=== PATIENT | female | born 1930 | race African-American/Black ===

== ENCOUNTER 2017-04-26 14:05 | Emergency (ER) | payer MEDICARE, MEDICAID ==
[~2017-04-26] VITALS: Ht 160 cm; Wt 57.2 kg
[2017-04-26] MEDS ORDERED: hydroCHLOROthiazide 25 MG TAB PO ONE (14:45)
[2017-04-26 15:42] LABS: CALCIUM LEVEL 9.2 MG/DL (8.8-10.2); CREATININE FOR GFR 1.19 MG/DL (0.55-1.02); GLOMERULAR FILTRATION RATE 55.2 (>32); POTASSIUM SERUM 3.5 MEQ/L (3.5-5.1)
[2017-04-26 15:52] LABS: BASO % 0.5 % (0.0-1.0); EOS # 0.1 K/mm3 (0.0-0.50); EOS % 1.9 % (0.0-3.0); LARGE UNSTAINED CELL # 0.1 K/mm3 (0.0-0.4); LARGE UNSTAINED CELL % 2.3 % (0.0-4.0); LYMPH # 1.5 K/mm3 (1.5-4.5); MEAN CORPUSCULAR HEMOGLOBIN 31.5 pg (27.0-33.0); MEAN CORPUSCULAR HGB CONC 32.9 g/dl (32.0-36.5); MEAN CORPUSCULAR VOLUME 95.7 fl (80.0-96.0); MONO # 0.3 K/mm3 (0.0-0.8); MONO % 7.8 % (0.0-5.0); NEUTROPHILS # 1.6 K/mm3 (1.8-7.7); NEUTROPHILS % 46.5 % (36.0-66.0); PLATELET COUNT, AUTOMATED 123 k/mm3 (150-450); RED CELL DISTRIBUTION WIDTH 13.5 % (11.5-14.5); WHITE BLOOD COUNT 3.3 K/mm3 (4.0-10.0)
--- NOTE | 2017-04-26 16:33 | REP ---
Chest two views HISTORY: Hypertension Comparison: 04/27/2011 The lungs are hyperinflated. The lungs are clear. The cardiac silhouette is enlarged. The pulmonary vasculature is normal in appearance. Degenerative change is present in the thoracic spine. IMPRESSION: Cardiomegaly. Signed by Xavier Jo MD 04/26/2017 04:26 P
[2017-04-26 17:13] VITALS: BP 160/70
--- NOTE | 2017-04-26 19:06 | ECGEPIP ---
Stationary ECG Study [facility] - ED Test Date: 2017-04-26 Pat Name: MARIBETH MCKEON Department: Room: - Gender: F Manager Strategy: davi : [id number] Requested By: MARCELLO GUTIERREZ Order Number: [id number] Reading MD: Joanne Becker Measurements Intervals [place] Rate: 83 P: 80 AL: 157 QRS: -25 QRSD: 137 T: 43 QT: 417 QTc: 491 Interpretive Statements SINUS RHYTHM WITH OCCASIONAL SUPRAVENTRICULAR PREMATURE COMPLEXES BORDERLINE LEFT AXIS DEVIATION RIGHT BUNDLE BRANCH BLOCK NO OLD ECG FOR COMPARISON Electronically Signed On 04-26-2017 19:05:37 EDT by Joanne Becker
== END 2017-04-26 17:14 | disposition home or self-care (01) ==
LOC: M ED 14:05
DX: L84 Corns and callosities (principal); I10 Essential (primary) hypertension; R60.0 Localized edema; E11.9 Type 2 diabetes mellitus without complications; K21.9 Gastro-esophageal reflux disease without esophagitis; D64.9 Anemia, unspecified; I51.7 Cardiomegaly; Z88.0 Allergy status to penicillin

== ENCOUNTER 2018-03-21 14:10 | Emergency (ER) | payer MEDICARE, MEDICAID ==
[2018-03-21] MEDS: ACETAMINOPHEN TAB 650MG DOSE (2X325MG) PO (14:52)
== END 2018-03-21 16:30 | disposition home or self-care (01) ==
LOC: M ED 14:10
DX: S40.012A Contusion of left shoulder, initial encounter (principal); S70.02XA Contusion of left hip, initial encounter; W01.0XXA Fall on same level from slipping, tripping and stumbling without subsequent striking against object, initial encounter; Y92.098 Other place in other non-institutional residence as the place of occurrence of the external cause; I10 Essential (primary) hypertension; Z88.0 Allergy status to penicillin
CPT/HCPCS: 73030

== ENCOUNTER 2018-04-19 13:27 | Emergency (ER) | payer MEDICARE, MEDICAID ==
[2018-04-19 14:24] LABS: BASO % 0.7 % (0.0-1.0); EOS # 0.1 10^3/uL (0.0-0.50); HEMATOCRIT 33.1 % (36.0-47.0); HEMOGLOBIN 10.8 g/dl (12.0-15.5); LYMPH # 1.9 10^3/uL (1.5-4.5); LYMPH % 43.6 % (24.0-44.0); MEAN CORPUSCULAR HEMOGLOBIN 31.4 pg (27.0-33.0); MEAN CORPUSCULAR HGB CONC 32.6 g/dl (32.0-36.5); MEAN CORPUSCULAR VOLUME 96.2 fl (80.0-96.0); MONO # 0.4 10^3/uL (0.0-0.8); MONO % 9.8 % (0.0-5.0); NEUTROPHILS # 1.9 10^3/uL (1.8-7.7); NEUTROPHILS % 43.9 % (36.0-66.0); PLATELET COUNT, AUTOMATED 111 10^3/uL (150-450); RED BLOOD COUNT 3.44 10^6/uL (4.00-5.40); RED CELL DISTRIBUTION WIDTH 13.2 % (11.5-14.5); WHITE BLOOD COUNT 4.4 10^3/uL (4.0-10.0)
[2018-04-19 14:47] LABS: ALBUMIN 4.2 GM/DL (3.2-5.2); ALBUMIN/GLOBULIN RATIO 1.14 (1.00-1.93); ALKALINE PHOSPHATASE 68 U/L (45-117); ALT/SGPT 23 U/L (12-78); ANION GAP 5 MEQ/L (8-16); AST/SGOT 34 U/L (7-37); BILIRUBIN,DIRECT 0.1 MG/DL (0.0-0.2); BILIRUBIN,TOTAL 0.5 MG/DL (0.2-1.0); BLOOD UREA NITROGEN 22 MG/DL (7-18); C REACTIVE PROTEIN QUANTITATIV < 0.30 MG/DL (0.00-0.30); CALCIUM LEVEL 8.7 MG/DL (8.8-10.2); CARBON DIOXIDE LEVEL 32 MEQ/L (21-32); CHLORIDE LEVEL 105 MEQ/L (98-107); CPK CREATINE PHOSPHOKINASE 210 U/L (26-192); CREATININE FOR GFR 1.33 MG/DL (0.55-1.30); GLOMERULAR FILTRATION RATE 48.5 (>32); GLUCOSE, FASTING 82 MG/DL (70-100); POTASSIUM SERUM 3.8 MEQ/L (3.5-5.1); SODIUM LEVEL 142 MEQ/L (136-145); TOTAL PROTEIN 7.9 GM/DL (6.4-8.2); TROPONIN I < 0.02 NG/ML (< 0.10); URIC ACID 4.3 MG/DL (2.6-6.0)
[2018-04-19] MEDS: GABAPENTIN 100 MG CAP PO (14:49)
[2018-04-19] MEDS: predniSONE 20 MG TAB PO (14:49)
[2018-04-19 14:55] LABS: CK-MB VALUE MASS 1.8 NG/ML (<3.6); FREE T4 0.97 NG/DL (0.76-1.46); MB/CK RELATIVE INDEX 0.85 (< OR =4)
[2018-04-19] MEDS: amLODIPine 5 MG TAB PO (16:34)
== END 2018-04-19 16:47 | disposition home or self-care (01) ==
LOC: M ED 13:27
DX: E11.40 Type 2 diabetes mellitus with diabetic neuropathy, unspecified (principal); M19.072 Primary osteoarthritis, left ankle and foot; M19.071 Primary osteoarthritis, right ankle and foot; I10 Essential (primary) hypertension; M19.012 Primary osteoarthritis, left shoulder; M85.812 Other specified disorders of bone density and structure, left shoulder; Z91.81 History of falling; Z88.0 Allergy status to penicillin
CPT/HCPCS: 71045